=== PATIENT | male | born 2005 | race Caucasian/White ===

== ENCOUNTER 2023-10-13 19:31 | Emergency (ER) | payer OTHER, SELFPAY ==
--- NOTE | ~2023-10-13 | XR_ITS ---
EXAMINATION: XR shoulder RT min 2V DATE: 10/13/2023 19:48 INDICATION: Right shoulder injury TECHNIQUE: AP internally and externally rotated, AP oblique externally rotated and transscapular Y vi ews of the right shoulder were obtained. COMPARISON: None FINDINGS: Normal alignment. No fracture. Glenohumeral joint is normal. Acromioclavicular joint is normal. Ther e is an ovoid sclerotic likely bone island at the proximal right humeral diaphysis. Soft tissues are unremarkable. Visualized portion of the lungs are clear. IMPRESSION: No acute osseous abnormality. Reviewed, dictated and finalized at location A.
[2023-10-13 19:48] VITALS: BP 154/90; PULSE 112; RESP 18; TEMP 36.6; O2SAT 100
--- NOTE | 2023-10-13 20:24 | ED.GENADULT ---
HPI - General Adult General Chief complaint: Extremity Injury, Upper Stated complaint: r shoulder injury Time Seen by Provider: 10/13/23 20:16 History of Present Illness HPI narrative: Patient is a 18-year-old male who presents to the emergency department this afternoon complaining of right shoulder pain. Patient states that yesterday he was rolling down a hill with a few of his friends and started to have some pain along the anterior right shoulder. Patient states that he is able to move his right shoulder but the movement is limited due the pain. Patient has pain mainly when he moves his shoulder joint anteriorly. Denies any additional injuries or concerns at this time. Review of Systems Review of Systems: All systems are reviewed and are negative unless stated otherwise in the HPI. Exam Narrative: General: Alert, awake, afebrile, in no acute distress. HEENT: PERRL, no rhinorrhea, no post nasal drip, oropharynx clear. Cardiovascular: Regular rate and rhythm, no murmurs, rubs or gallops, no peripheral edema. Respiratory: Clear to auscultation bilaterally, no tachypnea, no wheezing, no rhonchi, no rubs, no respiratory distress. Abdomen: Soft, nontender, nondistended, no rebound, no guarding, no peritoneal signs. Musculoskeletal: No joint swelling or deformity, normal muscle tone, pain with anterior range of motion. Skin: No rashes or petechia, no signs of infection. Neurological: Alert and oriented to person, place, and time. Follows all commands. No focal deficits, speech is clear and fluent. Course Vital Signs Vital signs: Vital Signs Temperature 97.8 F 10/13/23 19:48 Pulse Rate 112 H 10/13/23 19:48 Respiratory Rate 18 10/13/23 19:48 Blood Pressure 154/90 H 10/13/23 19:48 Pulse Oximetry 100 10/13/23 19:48 Oxygen Delivery Room Air 10/13/23 19:48 Temperature 97.8 F 10/13/23 19:48 Pulse Rate 112 H 10/13/23 19:48 Respiratory Rate 18 10/13/23 19:48 Blood Pressure 154/90 H 10/13/23 19:48 Pulse Oximetry 100 10/13/23 19:48 Oxygen Delivery Room Air 10/13/23 19:48 Medical Decision Making [facility] Narrative Medical decision making narrative: The patient was evaluated by myself in the emergency department. History is obtained from patient who is an independent historian and physical exam was performed. External medical records were reviewed at this time. Imaging studies obtained included right shoulder xray which was independently interpreted by me revealing no acute process, which is pending final radiology interpretation. Differential diagnosis considerations include fracture, dislocation, rotator cuff injury, nerve impingement. Comorbidities impacting this visit include none. I have evaluated and discussed social determinants of health with the patient that could potentially impact subsequent diagnosis and treatment plans. On repeat assessment of the patient, reevaluation revealed that the patient is doing well and is in no acute distress. Patient symptoms have improved since she arrived to our emergency department. Repeat vital signs were all reviewed and noted to be stable. Differential diagnosis and treatment plan were discussed with the patient at bedside. Patient agrees with discussion and after shared medical decision making agrees with discharge. All questions were answered to the patient's satisfaction. Patient will follow up with orthopedics in 3-5 days. Patient was provided with strict return precautions and instructed to return to the emergency department if any new or worsening symptoms develop. The patient was discharged in stable condition. Vital Signs Vital Signs: Vital Signs Temperature 97.8 F 10/13/23 19:48 Pulse Rate 112 H 10/13/23 19:48 Respiratory Rate 18 10/13/23 19:48 Blood Pressure 154/90 H 10/13/23 19:48 Pulse Oximetry 100 10/13/23 19:48 Oxygen Delivery Room Air 10/13/23 19:48 Temperature 97.8 F 10/13/23 19:48 Pulse
== END 2023-10-13 20:32 | disposition home or self-care (01) ==
LOC: ANHED 20:28
PROVIDERS: Emergency Provider Emergency Medicine
DX: S49.91XA Unspecified injury of right shoulder and upper arm, initial encounter (principal); X58.XXXA Exposure to other specified factors, initial encounter
CPT/HCPCS: 73030; 99283